=== PATIENT | male | born 1985 | race Caucasian/White ===

== ENCOUNTER 2017-01-10 00:09 | Emergency (ER) | payer OTHER | END 2017-01-10 01:15 | disposition other institution (70) | LOC: ED 00:09 | DX: Z02.89 Encounter for other administrative examinations (principal) ==

== ENCOUNTER 2017-01-10 00:09 | Emergency (ER) | payer SELFPAY ==
[2017-01-10 01:15] VITALS: BP 111/64
== END 2017-01-10 01:15 | disposition other institution (70) ==
LOC: ED 00:09
DX: Z02.89 Encounter for other administrative examinations (principal); S80.211A Abrasion, right knee, initial encounter; X58.XXXA Exposure to other specified factors, initial encounter; Y93.89 Activity, other specified; Y92.89 Other specified places as the place of occurrence of the external cause; Y99.8 Other external cause status
CPT/HCPCS: 90715